=== PATIENT | female | born 1995 | race African-American/Black ===

== ENCOUNTER 2020-12-09 02:03 | Emergency (ER) | payer SELFPAY ==
[2020-12-09] MEDS ORDERED: Lorazepam 2 MG/ML VIAL ONE (02:26)
[2020-12-09] MEDS ORDERED: predniSONE 20 MG TAB ONE (02:26)
[2020-12-09] MEDS ORDERED: Lorazepam 1 MG TAB ONE (02:48)
== END 2020-12-09 05:28 | disposition home or self-care (01) ==
LOC: MADERS 02:03
DX: R06.02 Shortness of breath (principal); E03.9 Hypothyroidism, unspecified; D64.9 Anemia, unspecified
CPT/HCPCS: 71045; 93005; J2060; J7512